=== PATIENT | female | born 1965 | race African-American/Black ===

== ENCOUNTER 2017-09-25 09:52 | Observation (INO) | payer OTHER ==
[2017-09-25] MEDS ORDERED: levETIRAcetam In NaCl (Iso-Os) 1,000 MG in Premix Bag 1 BAG IVPB SCH (11:00)
[2017-09-25] MEDS ORDERED: Acetaminophen 500 MG TAB ONE (12:09)
[2017-09-25] MEDS ORDERED: Ketorolac Tromethamine 30 MG/ML VIAL ONE (13:37)
[2017-09-25] MEDS ORDERED: Nicotine 21 MG PATCH TOP SCH (14:00)
[2017-09-25] MEDS ORDERED: Acetaminophen 325 MG TAB PO PRN (14:47)
[2017-09-25] MEDS ORDERED: Ondansetron HCl/PF 4 MG/2 ML Vial IVP PRN (14:47)
[2017-09-25] MEDS ORDERED: Ondansetron ODT 4 MG TAB PO PRN (14:47)
[2017-09-25 15:57] VITALS: BMI 39.8
[2017-09-25] MEDS ORDERED: levETIRAcetam 500 MG TAB PO SCH (21:00)
[2017-09-25] MEDS: levETIRAcetam 500 MG TAB PO SCH (21:02)
[2017-09-25] MEDS: Famotidine 20 MG TAB PO SCH (21:02)
[2017-09-25] MEDS ORDERED: Lorazepam 2 MG/ML VIAL ONE (21:10)
[2017-09-25] MEDS ORDERED: hydrALAZINE 20 MG/ML VIAL SLOW IVP PRN (21:26)
--- NOTE | 2017-09-25 21:31 | PDOC.EVN ---
Event Note - Event Note Event Note: Patient had a rapid response for Seizure today with No tonic clonic type but patient lost her consciousness for 10-15 min until Ativan 2 mg IV was given, she remained in confused state, likely persistant seizures, CT head this morning was normal, she has Elevated Blood pressures. Pt has h/po Cpeptide levels Elevated with elevated serum insulin levels in 2017, BMP ordered is pending now. Pt is On keppra recieved a loading dose this morning of 1000MG iv AND 500MG po bid. Will inform Dr. Wiggins today, Will move pt to IMCU as patient has not regained her concsiousness after the Seizure. Woill need close moinitrouing, She is high risk for Aspiration with frequent seizures.
[2017-09-25] MEDS ORDERED: Lorazepam 2 MG/ML VIAL SLOW IVP PRN (22:25)
--- NOTE | 2017-09-25 23:35 | CON ---
DATE OF CONSULTATION: 09/25/2017 REFERRING PROVIDER: Reynaldo Mccollum MD REASON FOR CONSULTATION: Recurrent seizures. HISTORY OF PRESENT ILLNESS: Ms. Cazares is a 52-year-old female who has been concerned for evaluation of recurrent seizures. I actually had seen this patient in 08/2016 for her episodes of s eizures. At that time, she had MRI of brain and EEG done which were normal. 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 She was suppos ed to follow with me as outpatient in the clinic post-discharge; however, she never presented for [facility]. Her daughter at her bedside who reported that patient since then has been having spells once every 2-3 months. Most of her spells have been triggered by stress and anxiety. Daughter notes that on yesterday, she got into an argument with her . When she woke up this morning, she was fee ling extremely fatigue and tired. She was having difficulty maintaining her balance. She had sudden ly passed out and had whole body convulsions. The family members immediately called EMS and brought her to the [facility]. She had 2 spells of seizure activity in the ER. According to the nurse, she has had multiple spells since being admitted to the stroke unit. She is very lethargi c. She denies any headache, chest pain, palpitation, nausea, vomiting, and no abdominal pain. PAST MEDICAL HISTORY: Significant for hypertension, GERD, chronic constipation. PAST SURGICAL HISTORY: Significant for , tubal ligation, right foot surgery. CURRENT MEDICATIONS: Please review MAR. ALLERGIES: No known drug allergies. SOCIAL HISTORY: She denies alcohol use, or illicit drug use. She does smoke half pack per day. FAMILY HISTORY: Significant for hypertension and diabetes. REVIEW OF SYSTEMS: As mentioned in the HPI, otherwise negative. PHYSICAL EXAMINATION: VITAL SIGNS: Blood pressure of 94/62, pulse of 87, temperature of 97.5, respirations of 16, O2 sats 95% on room air. GENERAL: A well-developed, well-nourished -Vincentian female, in no apparent distress. RESPIRATORY: Clear to auscultation bilaterally. CARDIOVASCULAR: Regular rate and rhythm. NEUROLOGIC: Mental status: The patient is awake, alert, oriented x3. Speech and language: Fluent speech. Cranial nerves: Pupils are 3 mm and reactive. Visual [place] are intact. Extraocular muscl es are intact. No nystagmus noted. Face is symmetric. Tongue and uvula midline. Motor exam showed normal tone and bulk with a 5/5 strength in both upper and lower extremities. Sensory: Sensation i s intact and symmetric. Deep tendon reflexes 2+ in both upper and lower extremities. Babinski: Juan Diego ntar responses flexion bilaterally. Coordination intact to [id number] and finger tapping wesley aterally. LABORATORY DATA: Reviewed, which included CBC, CMP, urinalysis, urine drug screen, which is signific ant for glucose of 112. CRP of 1.86, otherwise unremarkable. IMAGING STUDIES: CT of head without contrast was reviewed, which showed no acute intracranial monito ring. 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 Ms. Cazares is a pleasant 52-year-old Afri [place]incentian female who presented with multiple episodes of seizures at home. These events were trig gered by stress and anxiety. At this time, I will recommend decreasing her Keppra to 500 mg b.i.d. I would also recommend starting her on Lexapro 10 mg at bedtime for stress and anxiety. I will see h er back in my clinic in 4 weeks and follow up for further evaluation.
[2017-09-26 07:57] LABS: #Eosinphils 0.1 thou/uL (0.0-0.7); #Lymphocytes 2.6 thou/uL (1.20-3.40); #Monocytes 0.6 thou/uL (0.11-0.59); #Neutrophils 2.3 thou/uL (1.40-6.50); %Basophils 0.5 % (0.0-1.0); %Eosinophils 1.8 % (0.0-10.0); %Lymphocytes 45.9 % (21.0-51.0); %Monocytes 10.1 % (0.0-10.0); %Neutrophils 41.7 % (42.0-75.0); Hemoglobin 14.2 g/dL (12.0-16.0); Mean Corpuscular HGB CONC 30.7 g/dL (32.0-36.0); Mean Corpuscular Hemoglobin 26.2 pg (27.0-31.0); Mean Corpuscular Volume 85.4 fl (81.0-99.0); Mean Platelet Volume 6.8 fL (7.4-10.4); Platelet Count 216 thou/uL (130-400); Red Blood Cell (RBC) Count 5.42 mill/uL (4.20-5.40); White Blood Cell (WBC) Count 5.6 thou/uL (4.8-10.8)
[2017-09-26 08:08] LABS: Anion Gap 10 mmol/L (10-20); BUN (Urea Nitrogen) 18 mg/dL (9.8-20.1); Calc. Creatinine Clearance 136 mL/min (70-130); Carbon Dioxide 25 mmol/L (22-29); Chloride 110 mmol/L (98-107); Estimated GFR-MDRD Greater than 90; Glucose 88 mg/dL (70-105); Potassium 4.2 mmol/L (3.5-5.1); Sodium 141 mmol/L (136-145)
[2017-09-26] MEDS ORDERED: Lisinopril 10 MG TAB PO SCH (09:00)
[2017-09-26] MEDS ORDERED: Escitalopram Oxalate 10 mg Tablet PO SCH (09:00)
[2017-09-26] MEDS: levETIRAcetam 500 MG TAB PO SCH (09:35)
[2017-09-26] MEDS: Famotidine 20 MG TAB PO SCH (09:35)
[2017-09-26 13:12] VITALS: TEMP 97.3
[2017-09-26 15:31] VITALS: BP 104/61
--- NOTE | 2017-09-27 10:50 | EEG ---
Referring Physician: DR. TOÑO THOMPSON EEG # [id number] TEST TYPE: ROUTINE PORTABLE INPATIENT EEG. DATE OF EEG BEING DONE: 09/26/2017 REASON FOR EEG: [facility] EEG DESCRIPTION: This is a 21 channel EEG recording. Electrodes are placed using the ten-twenty international electrode placement system. The background rhythm is predominately 8-9 hertz, medium voltage alpha rhythm. There are periods of drowsiness with 6-7, low to medium voltage theta rhythm. HYPERVENTILATION: Is not done. PHOTIC STIMULATION: Showed not effect. There are no epileptiform discharges, sharp transients or asymmetry noted. EKG LEAD: Shows 90 beats per minute, regular rhythm. IMPRESSION: THIS IS A NORMAL AWAKE AND DROWSY EEG. Water Leak Repairer: CHRISTOPHER [employer] Mechanic: EEG.MSGalindo HILL
--- NOTE | 2017-09-27 15:32 | HP ---
DATE OF ADMISSION: 09/25/2017 TIME OF SERVICE: 1600. PRIMARY CARE PHYSICIAN: Stephania Bautista MD CHIEF COMPLAINT: Spells. HISTORY OF PRESENT ILLNESS: Ms. Cazares is a 52-year-old female with history of hyper tension, some kind of a seizure spell disorder, peptic ulcer disease and GERD, who was initially take n to [facility] for altered mental status. There she apparently complained of body aches, fatigue, shortness of breath and just feeling off. Adalberto powell was having the spells which she just stopped responding and stare off, they thought might be possib le seizures. She was felt to be fluid overloaded. She was given 2 mg of Ativan and 1 gram of Keppra on arrival here. She would have these episodes for over a year and a half now, occurring about every 2-3 months. [facility] gh last 24 hours, she has had about 8 episodes. She did have one of this episode in the ER here. Adalberto powell was apparently unresponsive to sternal rub and subsequently we were called for admission. On arrival to the floor, she had 3 episodes just sitting in wheelchair. These were accompanied by st aring off into space, deviation of the eyes to the left and rhythmic tremor in her right forearm and hand. PAST MEDICAL HISTORY: 1. Hypertension. 2. Seizure disorder, digging to the chart, she was admitted actually for this about a year ago and w as diagnosed with pseudoseizures. 3. History of gastroesophageal reflux disease. 4. Peptic ulcer disease. PAST SURGICAL HISTORY: Includes, 1. . 2. Right foot ORIF. 3. Bilateral tubal ligation remotely. HOME MEDICATIONS: Lisinopril 10 mg p.o. daily. She was initially placed on Keppra 500 mg b.i.d. Adalberto powell supposed to follow up with Dr. Wiggins, but never did and stopped taking the Keppra. ALLERGIES: REGLAN. Reactions are none. SOCIAL HISTORY: Ongoing tobacco use, one half to 1 pack of cigarettes per day. She has been doing t his for about 26 years. Negative habits x2, otherwise. Interestingly, the patient on arrival to [facility], did go down to smoke a cigarette with family member. She was brought back up and was having spells as soon as she arrived back in the room. FAMILY HISTORY: Negative for clotting or bleeding disorder, no immune dysfunction. No history of se izure problems or central nervous system tumors. PHYSICAL EXAMINATION: VITAL SIGNS: Temperature 98.2, pulse 74, blood pressure 136/88, respiratory 18, satting 96% on room air. GENERAL: She is awake but unresponsive. Seems to be groggy, but frequently goes into these spells w here she stares off with leftward eye deviation and rhythmic movements of her right arm. During thos e episodes, she is not responsive. I did not try any sternal rubs or painful stimuli. HEENT: Normocephalic, atraumatic. Pupils equal, reactive bilaterally, mucosa moist. She has no vis ible lesion or thrush. NECK: Supple. There is no lymphadenopathy, no JVD, no thyromegaly. She has normal carotid upstroke s. There are no bruits. LUNGS: Clear. Good air movement and symmetrical chest excursion. No wheezes, no rales, no rhonchi. CARDIOVASCULAR: She has normal S1, S2. No murmurs. She has normal cardiac with a regular rate and normal rhythm. ABDOMEN: Soft. She is obese. She is nontender. There is no rebound, rigidity or guarding. She murray s normoactive bowel sounds in all 4 quadrants. EXTREMITIES: No cyanosis, no clubbing. She got 1+ lower extremity edema to just above the ankles. She has 2+ dorsalis pedis and posterior tibial pulses bilaterally. SKIN: Warm, moist, and well perfused. She has no rashes or lesions. MUSCULOSKELETAL: Shows large joint to be intact. She has no visual abnormality. No evidence of inf lammation and no palpable effusions. NEUROLOGIC: Shows cranial nerves to be normal in between episodes. She has no focal deficits. She did have 3 spells where she had leftward and upward eye deviation. There was no nystagmus that felt to be horizontal or vertical, she had rhythmic motion, but not pill rolling in the right arm. She re ally had no bowel or bladder incontinence. No tongue biting and no postictal phase. LABORATORY DATA: Sodium 142, potassium 4.3, chloride 110, bicarbonate 23, BUN 16, creatinine 0.85, g lucose 147, calcium 9.3. Liver functions within normal limits. CBC shows white count 6.1, hemoglobi n 15.2, hematocrit 47.6, platelet count is 227,000. A CT scan of the brain was negative. Chest x-ray is negative for acute disease. ASSESSMENT AND PLAN: 1. Spells. Certainly could be pseudoseizures. We will place her in the stroke unit on observation. We will get Dr. Wiggins to evaluate. I will continue her Keppra, I have converted to 1000 mg b.i.d. Suspect to get an EEG and possibly an MRI. 2. Hypertension, takes lisinopril daily. We will continue and have hydralazine as needed. 3. History of pseudoseizures: After allowing this, I felt this is probably one of her pseudoseizure that is going to be the same. Told to me after the initial evaluation, the patient to have an argum ent with one of her family members the day prior to all this starting up again. 4. History of gastroesophageal reflux disease/peptic ulcer disease. We will continue her on Pepcid b.i.d.
--- NOTE | 2017-09-27 16:41 | DIS ---
DATE OF ADMISSION: 09/25/2017 DATE OF DISCHARGE: 09/26/2017 PRIMARY CARE PHYSICIAN: Stephania Bautista M.D. DISCHARGE DIAGNOSES: 1. Pseudoseizures. 2. Gastroesophageal reflux disease. 3. Peptic ulcer disease. 4. Chronic kidney disease stage 2. CONSULTATIONS: Dr. Bernadette Wiggins. PROCEDURES: 1. MRI of the brain. 2. EEG monitoring. HISTORY AND PHYSICAL: Ms. Cazares is a 52-year-old female with a history of pseudoseizures in the [facility] who did not come in for followup who had been having stressors with her family. She developed inc reased frequency of her spells which has been going on for the last year or so every 2-3 months to 7 or 8 times a day over the last two weeks and increasing in frequency. She continued to have episodes and so went to the emergency department outside facility and was transferred here. We were called f or admission for further workup. HOSPITAL COURSE: The patient was seen and examined. On arrival to the floor, she was having multipl e episodes every few minutes with a left upward deviation of her eyes and rhythmic motion of her righ t hand. There was concern for seizures, so she was placed in observation. She was given Keppra in [facility] ER and continued on IV Keppra on the floor. Neurology was consulted. The patient was seen the same day of admission by Dr. Wiggins. He ordered EEG monitoring, but felt this was likely further pseudoseizures. That night, she developed a code green situation where she became unresponsive and were considered an d was transferred to the ICU for further monitoring. She subsequently did well overnight. She had E EG monitoring that was negative for epileptiform discharges. Dr. Wiggins recommended discharge home wit h outpatient followup and Keppra 500 mg b.i.d. to be stopped later. She was started on Celexa 10 mg daily. The discharge disposition was discussed with the patient, she was upset that we were calling her "collette delacruz." I explained to her that this is likely a pseudoseizure conversion disorder, but she was not con vinced. She left angry vowing to either come back or go to another facility for a second opinion. The patient was seen and examined on the day of discharge. Discharge plan and disposition discussed with the patient and her family face to face at the bedside. DISCHARGE MEDICATIONS: 1. Lexapro 10 mg p.o. daily. 2. Keppra 500 mg p.o. b.i.d. 3. Lisinopril 10 mg daily. FOLLOWUP APPOINTMENTS: 1. Primary care physician within a week. 2. Dr. Wiggins in 2-3 weeks. DISCHARGE DIET: Heart healthy recommended. DISCHARGE ACTIVITY: Per cardiopulmonary and Neurology limits. DISCHARGE CONDITION: Stable. DISPOSITION: Will be discharged home via private vehicle.
== END 2017-09-26 16:19 | disposition home or self-care (01) ==
LOC: ERS 09:52 → 2SE 13:12 → INTOOBSV 13:12 → OBSVTOIN 13:12 → IMCU/EMU 21:18
PROVIDERS: ADMIT Internal Medicine Infectious Disease; ATTEND Internal Medicine Infectious Disease
DX: R56.9 Unspecified convulsions (principal); K21.9 Gastro-esophageal reflux disease without esophagitis; K27.9 Peptic ulcer, site unspecified, unspecified as acute or chronic, without hemorrhage or perforation; I12.9 Hypertensive chronic kidney disease with stage 1 through stage 4 chronic kidney disease, or unspecified chronic kidney disease; N18.2 Chronic kidney disease, stage 2 (mild); Z88.8 Allergy status to other drugs, medicaments and biological substances; Z79.899 Other long term (current) drug therapy; Z98.890 Other specified postprocedural states
CPT/HCPCS: 36416; 80048; 83525; 84681; 85025; 95816; 95819; 96365; 96375; G0378; J1885; J1953; J2060; Q0162

== ENCOUNTER 2023-06-27 20:28 | Observation (INO) | payer BC, OTHER, SELFPAY ==
[2023-06-27 22:33] VITALS: BMI 44.0
[2023-06-27] MEDS ORDERED: Sodium Chloride 0.9% 500 ML IV SCH (23:15)
[2023-06-27] MEDS ORDERED: Morphine 4 MG/ML VIAL SLOW IVP SCH (23:15)
[2023-06-27] MEDS ORDERED: Pantoprazole 40 MG VIAL IVP SCH (23:15)
[2023-06-27] MEDS ORDERED: Glucagon 1 MG/ML KIT IM PRN (23:17)
[2023-06-27] MEDS ORDERED: Acetaminophen 650 MG Suppository PR PRN (23:17)
[2023-06-27] MEDS ORDERED: Dextrose 5% in Water 1,000 ML IV PRN (23:17)
[2023-06-27] MEDS ORDERED: Dextrose 50% Abboject 50 ML SYRINGE SLOW IVP PRN (23:17)
[2023-06-27] MEDS ORDERED: HumaLOG 300 UNITS/3 ML VIAL SC PRN ×2 (23:17)
[2023-06-27] MEDS ORDERED: Ondansetron PF 4 MG/2 ML Vial IVP PRN (23:17)
[2023-06-27] MEDS ORDERED: Acetaminophen 325 MG TAB PO PRN (23:17)
[2023-06-27] MEDS ORDERED: Ondansetron ODT 4 MG TAB PO PRN (23:17)
[2023-06-27] MEDS ORDERED: Sucralfate 1 GM/10 ML UDCUP PO SCH (23:30)
[2023-06-27] MEDS: Sodium Chloride 0.9% 1,000 ML IV SCH (23:35)
[2023-06-28 05:09] LABS: #Eosinphils 0.1 thou/uL (0.0-0.7); #Monocytes 0.6 thou/uL (0.11-0.59); #Neutrophils 2.2 thou/uL (1.40-6.50); %Basophils 0.3 % (0.0-1.0); %Eosinophils 1.6 % (0.0-10.0); %Lymphocytes 50.1 % (21.0-51.0); %Monocytes 9.7 % (0.0-10.0); %Neutrophils 38.1 % (42.0-75.0); Mean Corpuscular HGB CONC 30.4 g/dL (32.0-36.0); Mean Corpuscular Hemoglobin 25.5 pg (27.0-31.0); Mean Corpuscular Volume 83.9 fl (78.0-98.0); Mean Platelet Volume 8.6 fL (7.4-10.4); Platelet Count 206 10x3/uL (130-400); RBC Distribution Width 14.7 % (11.5-14.5); Red Blood Cell (RBC) Count 5.48 mill/uL (4.20-5.40); White Blood Cell (WBC) Count 5.8 10x3/uL (4.8-10.8)
[2023-06-28 05:44] LABS: Anion Gap 10 mmol/L (10-20); BUN (Urea Nitrogen) 12 mg/dL (9.8-20.1); Calc. Creatinine Clearance 129 mL/min (70-130); Carbon Dioxide 23 mmol/L (22-29); Chloride 109 mmol/L (98-107); Estimated GFR 83; Glucose 98 mg/dL (70-105); Potassium 4.3 mmol/L (3.5-5.1); Sodium 138 mmol/L (136-145)
[2023-06-28] MEDS ORDERED: Morphine 4 MG/ML VIAL SLOW IVP SCH (06:00)
[2023-06-28] MEDS: Pantoprazole 40 MG VIAL IVP SCH (08:55)
[2023-06-28] MEDS ORDERED: GoLYTELY 4,000 ml Bottle PO SCH (16:30)
[2023-06-28] MEDS ORDERED: hydrALAZINE 20 MG/ML VIAL SLOW IVP PRN (16:48)
[2023-06-28] MEDS: HYDROcodone/Acetaminophen 5/325 mg Tablet PO PRN ×2 (16:51→20:08)
[2023-06-28] MEDS: Sodium Chloride 0.9% 1,000 ML IV SCH ×3 (16:52→21:13)
[2023-06-28] MEDS: Ketorolac Tromethamine 30 MG (1 mL) VIAL IVP PRN (21:00)
[2023-06-29] MEDS: Ketorolac Tromethamine 30 MG (1 mL) VIAL IVP PRN ×2 (04:56→05:00)
[2023-06-29] MEDS ORDERED: PROPOFOL 40 ML ONE (08:11)
[2023-06-29] MEDS ORDERED: PROPOFOL 20 ML ONE (08:12)
[2023-06-29] MEDS: Pantoprazole 40 MG VIAL IVP SCH (09:54)
[2023-06-29 12:03] VITALS: TEMP 97.8
[2023-06-29 12:04] VITALS: BP 128/84
== END 2023-06-29 11:35 | disposition home or self-care (01) ==
LOC: T4-B 22:24
PROVIDERS: ADMIT Student in an Organized Health Care Education/Training Program; ATTEND Hospitalist
PROC: 0DB48ZX Excision of Esophagogastric Junction, Via Natural or Artificial Opening Endoscopic, Diagnostic (ICD-10-PCS; principal; 2023-06-29)
PROC: 0DB68ZX Excision of Stomach, Via Natural or Artificial Opening Endoscopic, Diagnostic (ICD-10-PCS; 2023-06-29)
PROC: 0DJD8ZZ Inspection of Lower Intestinal Tract, Via Natural or Artificial Opening Endoscopic (ICD-10-PCS; 2023-06-29)
DX: K29.40 Chronic atrophic gastritis without bleeding (principal); K31.A0 Gastric intestinal metaplasia, unspecified; K26.9 Duodenal ulcer, unspecified as acute or chronic, without hemorrhage or perforation; I25.10 Atherosclerotic heart disease of native coronary artery without angina pectoris; I10 Essential (primary) hypertension; E03.9 Hypothyroidism, unspecified; K21.9 Gastro-esophageal reflux disease without esophagitis; F17.200 Nicotine dependence, unspecified, uncomplicated; K59.00 Constipation, unspecified; Z88.8 Allergy status to other drugs, medicaments and biological substances; Z79.82 Long term (current) use of aspirin; Z79.899 Other long term (current) drug therapy
CPT/HCPCS: 36415; 36416; 80048; 85025; 88305; 88342; 96374; 96375; 96376; C9113; G0378; J0360; J1885; J2270; J2405; J2704; J7030; J7050